=== PATIENT | male | born 1980 | race Caucasian/White ===

== ENCOUNTER 2016-12-01 21:19 | Emergency (ER) | payer SELFPAY ==
[~2016-12-01] VITALS: Ht 190.5 cm; Wt 68.0 kg
[2016-12-01 21:20] VITALS: BP 173/106
[2016-12-01] MEDS ORDERED: LIDO:MAALOX:DONNATAL 1:1:1 15 ML SINGLE DOSE SWSW ONE (22:00)
[2016-12-01] MEDS ORDERED: CARB200T PO (22:09)
[2016-12-01] MEDS ORDERED: LEVE100020 PO (22:09)
--- NOTE | 2016-12-01 22:09 | PHYS DOC ---
Past Medical History Past Medical History: Seizure, Other Additional Past Medical Histor: CHRONIC BACK PAIN, HEP C Past Surgical History: Other Additional Past Surgical Histo: FUNDOPLICATION Alcohol Use: None Drug Use: Heroin, Methamphetamine Adult General Chief Complaint Chief Complaint: COLD EXPOSURE HPI HPI Patient is a 36 year old male who presents by EMS for cold exposure and feeling that he is going to have seizure. He states when he is exposed to prolonged cold he gets an aura preseizure. His car broke down on the side of the road this morning and he has been trying to fix it for the past 12 hours. He has not eaten all day and he has mild epigastric burning abdominal pain and hunger. He denies headache, vision changes, chest pain, dyspnea, cough, diarrhea, nausea or vomiting. Review of Systems Review of Systems Constitutional: Denies fever or chills [] Eyes: Denies change in visual acuity, redness, or eye pain [] HENT: Denies nasal congestion or sore throat [] Respiratory: Denies cough or shortness of breath [] Cardiovascular: No additional information not addressed in HPI [] GI: Denies nausea, vomiting, bloody stools or diarrhea [] : Denies dysuria or hematuria [] Musculoskeletal: Denies back pain or joint pain [] Integument: Denies rash or skin lesions [] Neurologic: Denies headache, focal weakness or sensory changes [] Endocrine: Denies polyuria or polydipsia [] Current Medications Current Medications Current Medications Medications (Trade) Dose Ordered Sig/Alex Start Time Stop Time Status Last Admin Dose Admin Multi-Ingredient Mouthwash/Gargle (Gi Cocktail Single Dose) 15 ml 1X ONCE 12/01/16 22:00 12/01/16 22:01 DC 12/01/16 22:03 15 ML Allergies Allergies Allergies Coded Allergies Type Severity Reaction Last Updated Verified No Known Drug Allergies 12/01/16 No Physical Exam Physical Exam Constitutional: Well developed, well nourished, no acute distress, non-toxic appearance. [] HENT: Normocephalic, atraumatic, bilateral external ears normal, oropharynx moist, no oral exudates, nose normal. [] Eyes: PERRLA, EOMI. [] Neck: Normal range of motion, supple. [] Cardiovascular:Heart rate regular rhythm, no murmur [] Lungs & Thorax: Bilateral breath sounds clear to auscultation [] Abdomen: Bowel sounds normal, soft, no tenderness. [] Skin: Warm, dry, no erythema, no rash. [] Back: Normal range of motion. [] Extremities: ROM intact, no edema. [] Neurologic: Alert and oriented X 3, normal motor function, normal sensory function, no focal deficits noted, cranial nerves II through XII intact. [] Psychologic: Affect normal, judgement normal, mood normal. [] Current Patient Data Vital Signs Vital Signs Date Time Temp Pulse Resp B/P Pulse Ox O2 Delivery O2 Flow Rate FiO2 12/01/16 21:20 97.8 90 16 173/106 98 Room Air 97.8 Course & Med Decision Making Course & Med Decision Making Pertinent Labs and Imaging studies reviewed. (See chart for details) Provided food and short duration of medication refill. He is feeling better after eating. Encouraged him to find a primary care doctor for further refills. Return precautions given. He understands and agrees with plan. Dragon Disclaimer Dragon Disclaimer This electronic medical record was generated, in whole or in part, using a voice recognition dictation system. Departure Departure Impression: Primary Impression: Cold exposure Additional Impression: Seizure disorder Disposition: HOME, SELF-CARE Condition: STABLE Patient Instructions: Seizure, Adult, [id number] Additional Instructions: Take your seizure medications as prescribed. Follow-up with your primary care doctor within one week for further prescriptions. Return for any concerns. Scripts Carbamazepine (Tegretol)200 Mg Tablet1 Tab PO BID #14 TAB Ref 0 Prov:Patricia GORDON MD 12/01/16 Levetiracetam (Keppra)1,000 Mg Tablet1 Tab PO BID #14 TAB Ref 0 Prov:Patricia GORDON MD 12/01/16 Problem Qualifiers Primary Impression: Cold exposure Encounter type: initial encounter Qualified Code: T69.9XXA - Effect of reduced temperature, unspecified, initial encounter Patricia GORDON MD Dec 01, 2016 22:09
== END 2016-12-01 22:34 | disposition home or self-care (01) ==
LOC: ER 21:19
DX: T69.9XXA Effect of reduced temperature, unspecified, initial encounter (principal); R10.13 Epigastric pain; G89.29 Other chronic pain; B19.20 Unspecified viral hepatitis C without hepatic coma; G40.909 Epilepsy, unspecified, not intractable, without status epilepticus; F11.10 Opioid abuse, uncomplicated; F15.10 Other stimulant abuse, uncomplicated; Y92.89 Other specified places as the place of occurrence of the external cause
CPT/HCPCS: 99283